=== PATIENT | female | born 1935 | race Two or more races ===

== ENCOUNTER 2019-07-26 16:55 | Inpatient (IN) | payer MEDICARE, MEDICAID ==
[~2019-07-26] VITALS: Ht 121.9 cm; Wt 68.0 kg
[2019-07-26 18:19] LABS: BASOPHILS % 0.6 % (0.0-2.0); EOSINOPHILS % 2.1 % (0.0-5.0); HEMATOCRIT. 37.1 % (36.0-48.0); HEMOGLOBIN. 13.1 g/dL (12.0-16.0); LYMPHOCYTES % 29.3 % (20.0-50.0); MEAN CORPUSCULAR VOLUME 101.9 fL (81.0-99.0); MEAN PLATELET VOLUME 8.3 fl (7.4-10.4); MONOCYTES % 8.5 % (2.0-8.0); NEUTROPHILS % 59.5 % (40.0-76.0); PLATELET 192 x1000/uL (130-400); RED BLOOD CELL COUNT 3.65 mill/uL (4.2-5.4); RED CELL DISTRIBUTION WIDTH 14.3 % (11.6-14.6)
[2019-07-26 18:37] LABS: CHLORIDE 110 mEq/L (98-107)
[2019-07-26 18:41] LABS: ETHANOL BLOOD < 10 mg/dL
[2019-07-26 18:46] LABS: CREATINE KINASE 31 IU/L (26-192)
[2019-07-26 19:47] LABS: CLARITY URINE CLEAR (CLEAR); COLOR URINE YELLOW (YELLOW); KETONES URINE NEGATIVE (NEGATIVE); LEUKOCYTE ESTERASE URINE 3+ (NEGATIVE); NITRITE URINE NEGATIVE (NEGATIVE); OCCULT BLOOD URINE NEGATIVE (NEGATIVE); PH URINE 7.5 (4.5-8.0); PROTEIN URINE NEGATIVE (NEGATIVE); SPECIFIC GRAVITY URINE 1.004 (1.005-1.030); UROBILINOGEN URINE 0.2 E.U./dL (0.2-1.0)
[2019-07-26 20:07] LABS: *AMPHETAMINES SCREEN URINE NEGATIVE (NEGATIVE); *BARBITURATES SCREEN URINE NEGATIVE (NEGATIVE); *COCAINE SCREEN URINE NEGATIVE (NEGATIVE)
[2019-07-26 20:08] LABS: *BENZODIAZEPINES SCREEN URINE NEGATIVE (NEGATIVE); CANNABINOID URINE SCREEN NEGATIVE (NEGATIVE); METHADONE URINE SCREEN NEGATIVE (NEGATIVE); OPIATES URINE SCREEN NEGATIVE (NEGATIVE); PHENCYCLIDINE URINE SCREEN NEGATIVE (NEGATIVE)
[2019-07-26] MEDS ORDERED: CEFTRIAXONE 2 G PREMIX 50 ML IV ONE (21:30)
[2019-07-26] MEDS ORDERED: MIRA50TA MT (23:06)
[2019-07-26] MEDS ORDERED: CLOP75TA33 MT (23:06)
[2019-07-26] MEDS ORDERED: SERT50TA12 MT (23:06)
[2019-07-26] MEDS ORDERED: MUPI15CR11 TP (23:06)
[2019-07-26] MEDS ORDERED: AMLO5TAB88 MT (23:06)
[2019-07-26] MEDS ORDERED: CHOL400C8 MT (23:06)
[2019-07-26] MEDS ORDERED: LISI40TA4 MT (23:06)
[2019-07-26] MEDS ORDERED: MEMA10TA2 MT (23:06)
[2019-07-26] MEDS ORDERED: METO-385 MT (23:06)
[2019-07-26] MEDS ORDERED: CLONIDINE 0.1MG TABLET PO PRN (23:15)
[2019-07-26] MEDS ORDERED: DOCUSATE SODIUM 100MG CAPSULE PO PRN (23:15)
[2019-07-26] MEDS ORDERED: LORAZEPAM 2MG/ML CPJ IV PRN (23:15)
[2019-07-26] MEDS ORDERED: DIPHENHYDRAMINE 50MG/ML VIAL IV PRN (23:15)
[2019-07-26] MEDS ORDERED: NA PHOS,M-B/NA PHOS,DI-BA ENEMA 118ML PR PRN (23:15)
[2019-07-26] MEDS ORDERED: ONDANSETRON HCL 4MG/2ML INJ IV PRN (23:15)
[2019-07-26] MEDS ORDERED: HYDROCODONE/ACETAMINOPHEN 5/325MG TABLET PO PRN (23:15)
[2019-07-26] MEDS ORDERED: LEVOFLOXACIN 500MG PREMIX 100 ML IV SCH (23:15)
[2019-07-26] MEDS ORDERED: IPRATROPIUM/ALBUTEROL 0.5-3(2.5)MG/3ML NEB NEB PRN (23:15)
[2019-07-26] MEDS ORDERED: MAGNESIUM/ALUMINUM HYDROXIDE/SIMETHICONE 30ML UDC PO PRN (23:15)
[2019-07-26] MEDS ORDERED: GUAIFENESIN 200MG/10ML SUGAR FREE UDC PO PRN (23:15)
[2019-07-26] MEDS ORDERED: ACETAMINOPHEN 325MG TABLET PO PRN (23:15)
[2019-07-26] MEDS ORDERED: MORPHINE SULFATE 2 MG/ML CPJ (NOT FOR IM USE) IV PRN (23:15)
[2019-07-26 23:33] VITALS: BP 135/88
[2019-07-27] VITALS (8 sets, daily range): BP systolic 111–144; BP diastolic 58–68
[2019-07-27] MEDS: SODIUM CHLORIDE 0.45% 1,000 ML IV SCH ×2 (00:20→18:34)
[2019-07-27 06:42] LABS: BASOPHILS % 0.4 % (0.0-2.0); EOSINOPHILS % 2.6 % (0.0-5.0); HEMATOCRIT. 36.7 % (36.0-48.0); HEMOGLOBIN. 12.7 g/dL (12.0-16.0); LYMPHOCYTES % 25.1 % (20.0-50.0); MEAN CORPUSCULAR HEMOGLOBIN 35.3 pg (28.0-32.0); MEAN CORPUSCULAR VOLUME 101.8 fL (81.0-99.0); MEAN PLATELET VOLUME 8.8 fl (7.4-10.4); MONOCYTES % 8.3 % (2.0-8.0); NEUTROPHILS % 63.6 % (40.0-76.0); PLATELET 206 x1000/uL (130-400); RED BLOOD CELL COUNT 3.61 mill/uL (4.2-5.4)
[2019-07-27 06:53] LABS: CHLORIDE 112 mEq/L (98-107)
[2019-07-27 07:03] LABS: LDL CHOLESTEROL 134 mg/dL (5-100)
[2019-07-27 07:04] LABS: HDL CHOLESTEROL 36 mg/dL (40-59); T4 FREE 1.04 ng/dL (0.76-1.46)
[2019-07-27] MEDS: ASPIRIN 81MG EC TABLET PO SCH (08:06)
[2019-07-27] MEDS: ENOXAPARIN 40MG/0.4ML SYR SUBCUT SCH (08:07)
[2019-07-27] MEDS: LEVOFLOXACIN 500MG PREMIX 100 ML IV SCH (08:07)
[2019-07-28] VITALS: BP 125/70
[2019-07-28 04:00] VITALS: BP 128/50
[2019-07-28 08:00] VITALS: BP 128/58
[2019-07-28] MEDS: LEVOFLOXACIN 500MG PREMIX 100 ML IV SCH (08:30)
[2019-07-28] MEDS: ASPIRIN 81MG EC TABLET PO SCH (08:34)
[2019-07-28] MEDS: ENOXAPARIN 40MG/0.4ML SYR SUBCUT SCH (08:34)
[2019-07-28 12:00] VITALS: BP 125/58
== END 2019-07-28 15:28 | disposition home health service (06) | DRG 640 ==
LOC: ER 16:55 → EDBD 21:35 → 8WST 21:35 → ENRESERV 22:04
PROVIDERS: ADMIT Internal Medicine; ATTEND Internal Medicine
DX: E86.0 Dehydration (principal); G93.41 Metabolic encephalopathy; N39.0 Urinary tract infection, site not specified; D64.9 Anemia, unspecified; I10 Essential (primary) hypertension; F03.90 Unspecified dementia, unspecified severity, without behavioral disturbance, psychotic disturbance, mood disturbance, and anxiety; Z91.83 Wandering in diseases classified elsewhere
CPT/HCPCS: 36415; 71045; 80061; 80305; 80320; 81003; 82140; 82550; 83605; 84439; 84443; 84484; 93005; 97162; 99285; J0696; J1650; J1956; G0480

== ENCOUNTER 2021-07-15 17:42 | Inpatient (IN) | payer MEDICARE, MEDICAID ==
[~2021-07-15] VITALS: Ht 154.9 cm; Wt 50.8 kg
[~2021-07-15 17:42] MED LIST: AMLO5TAB88 MT; CHOL400C8 MT; CLOP75TA33 MT; LISI40TA13 MT; MEMA10TA2 MT; METO-385 MT; MIRA50TA MT; MUPI15CR11 TP; SERT50TA12 MT
[2021-07-15] MEDS ORDERED: CEFTRIAXONE 1 G PREMIX 50 ML IV ONE (18:30)
[2021-07-15] MEDS ORDERED: SODIUM CHLORIDE 0.9% 1000ML BAG (SEPSIS BOLUS) IV ONE (18:30)
[2021-07-15 18:51] LABS: BASOPHILS % 0.5 % (0.0-2.0); HEMATOCRIT. 41.2 % (36.0-48.0); HEMOGLOBIN. 14.4 g/dL (12.0-16.0); LYMPHOCYTES % 26.9 % (20.0-50.0); MEAN CORPUSCULAR HEMOGLOBIN 34.9 pg (28.0-32.0); MEAN CORPUSCULAR VOLUME 99.9 fL (81.0-99.0); MEAN PLATELET VOLUME 8.1 fl (7.4-10.4); MONOCYTES % 9.3 % (2.0-8.0); NEUTROPHILS % 62.3 % (40.0-76.0); PLATELET 195 x1000/uL (130-400); RED BLOOD CELL COUNT 4.12 mill/uL (4.2-5.4); RED CELL DISTRIBUTION WIDTH 13.2 % (11.6-14.6)
[2021-07-15 18:58] LABS: CHLORIDE 107 mEq/L (98-107)
[2021-07-15 19:03] LABS: PROTHROMBIN TIME 10.8 sec (9.6-11.0)
[2021-07-15 19:23] LABS: CLARITY URINE TURBID (CLEAR); COLOR URINE YELLOW (YELLOW); KETONES URINE NEGATIVE (NEGATIVE); LEUKOCYTE ESTERASE URINE TRACE (NEGATIVE); NITRITE URINE NEGATIVE (NEGATIVE); OCCULT BLOOD URINE NEGATIVE (NEGATIVE); PROTEIN URINE NEGATIVE (NEGATIVE); SPECIFIC GRAVITY URINE 1.019 (1.005-1.030)
[2021-07-15] MEDS ORDERED: ASPIRIN 325MG EC TABLET PO ONE (19:45)
[2021-07-15] MEDS ORDERED: HALOPERIDOL LACTATE 5MG/ML VIAL IM ONE (19:45)
[2021-07-15] MEDS ORDERED: IOHEXOL-350 100 ML BOTTLE ONE (23:27)
[2021-07-16] MEDS ORDERED: CLONIDINE 0.1MG TABLET PO PRN (06:45)
[2021-07-16] MEDS ORDERED: ONDANSETRON HCL 4MG/2ML INJ IV PRN (06:45)
[2021-07-16] MEDS ORDERED: GUAIFENESIN 200MG/10ML SUGAR FREE UDC PO PRN (06:45)
[2021-07-16] MEDS ORDERED: LEVOFLOXACIN 500MG PREMIX 100 ML IV SCH (07:30)
[2021-07-16] MEDS: ENOXAPARIN 40MG/0.4ML SYR SUBCUT SCH (07:56)
[2021-07-16] MEDS: SODIUM CHLORIDE 0.45% 1,000 ML IV SCH ×2 (07:56→20:05)
[2021-07-16] MEDS ORDERED: DOCUSATE SODIUM 100MG CAPSULE PO PRN (09:00)
[2021-07-16] MEDS ORDERED: MAGNESIUM/ALUMINUM HYDROXIDE/SIMETHICONE 30ML UDC PO PRN (09:00)
[2021-07-16] MEDS: METOPROLOL TARTRATE 25MG TABLET PO SCH ×2 (09:41→21:41)
[2021-07-16] MEDS: ASPIRIN 81MG EC TABLET PO SCH (09:41)
[2021-07-16 13:45] VITALS: BP 177/90
[2021-07-16] MEDS: SERTRALINE HCL 50MG TABLET PO SCH (16:41)
[2021-07-16] MEDS: LISINOPRIL 40MG TABLET PO SCH (16:41)
[2021-07-16 17:00] VITALS: BP 159/90
[2021-07-16] MEDS: MEMANTINE HCL 10MG TABLET PO SCH (17:22)
[2021-07-16] MEDS: DILTIAZEM HCL 30MG TABLET PO SCH (18:14)
[2021-07-16 20:00] VITALS: BP 120/91
[2021-07-16] MEDS: ACETAMINOPHEN 325MG TABLET PO PRN (21:39)
[2021-07-17] VITALS (7 sets, daily range): BP systolic 96–174; BP diastolic 45–75
[2021-07-17] MEDS: DILTIAZEM HCL 30MG TABLET PO SCH ×4 (01:43→18:00)
[2021-07-17 07:12] LABS: BASOPHILS % 0.3 % (0.0-2.0); EOSINOPHILS % 0.8 % (0.0-5.0); HEMATOCRIT. 40.3 % (36.0-48.0); HEMOGLOBIN. 13.6 g/dL (12.0-16.0); LYMPHOCYTES % 24.3 % (20.0-50.0); MEAN CORPUSCULAR HEMOGLOBIN 34.9 pg (28.0-32.0); MEAN CORPUSCULAR VOLUME 103.2 fL (81.0-99.0); MEAN PLATELET VOLUME 8.7 fl (7.4-10.4); MONOCYTES % 10.2 % (2.0-8.0); NEUTROPHILS % 64.4 % (40.0-76.0); PLATELET 184 x1000/uL (130-400); RED CELL DISTRIBUTION WIDTH 13.2 % (11.6-14.6)
[2021-07-17 07:29] LABS: CHLORIDE 106 mEq/L (98-107)
[2021-07-17 08:12] LABS: LDL CHOLESTEROL 72 mg/dL (5-100)
[2021-07-17 08:14] LABS: HDL CHOLESTEROL 40 mg/dL (40-59)
[2021-07-17] MEDS: MEMANTINE HCL 10MG TABLET PO SCH ×2 (08:54→18:22)
[2021-07-17] MEDS: SERTRALINE HCL 50MG TABLET PO SCH ×2 (08:54→09:02)
[2021-07-17] MEDS: LISINOPRIL 40MG TABLET PO SCH (08:55)
[2021-07-17] MEDS: ENOXAPARIN 40MG/0.4ML SYR SUBCUT SCH (08:56)
[2021-07-17] MEDS: ASPIRIN 81MG EC TABLET PO SCH (08:56)
[2021-07-17] MEDS: METOPROLOL TARTRATE 25MG TABLET PO SCH ×2 (08:56→20:41)
[2021-07-17] MEDS ORDERED: CLOPIDOGREL 75MG TABLET PO SCH (09:00)
[2021-07-17] MEDS: SODIUM CHLORIDE 0.45% 1,000 ML IV SCH ×2 (09:03→22:38)
[2021-07-17] MEDS: LEVOFLOXACIN 250MG PREMIX 50 ML IV SCH (09:03)
[2021-07-17] MEDS ORDERED: ENOXAPARIN 30MG/0.3ML SYR SUBCUT NR (11:00)
[2021-07-17] MEDS: AMLODIPINE 5MG TABLET PO SCH (12:55)
[2021-07-17] MEDS ORDERED: VANCOMYCIN 1 G PREMIX 200 ML IV NR (13:30)
[2021-07-17] MEDS: ACETAMINOPHEN 325MG TABLET PO PRN (18:22)
[2021-07-17] MEDS: ATORVASTATIN CALCIUM 40MG TABLET PO SCH (20:42)
[2021-07-18] VITALS: BP 151/69
[2021-07-18] MEDS: DILTIAZEM HCL 30MG TABLET PO SCH ×4 (00:40→21:19)
[2021-07-18 04:30] VITALS: BP 119/68
[2021-07-18] MEDS: VANCOMYCIN 500 MG PREMIX 100 ML IV SCH ×2 (06:19→23:15)
[2021-07-18 08:00] VITALS: BP 106/73
[2021-07-18] MEDS ORDERED: ENOXAPARIN 60MG/0.6ML SYR SUBCUT SCH (09:00)
[2021-07-18] MEDS: ASPIRIN 81MG EC TABLET PO SCH (09:10)
[2021-07-18] MEDS: MEMANTINE HCL 10MG TABLET PO SCH ×2 (09:10→17:09)
[2021-07-18] MEDS: SERTRALINE HCL 50MG TABLET PO SCH (09:10)
[2021-07-18] MEDS: METOPROLOL TARTRATE 25MG TABLET PO SCH (09:11)
[2021-07-18] MEDS: LISINOPRIL 40MG TABLET PO SCH (09:11)
[2021-07-18] MEDS: AMLODIPINE 5MG TABLET PO SCH (09:11)
[2021-07-18] MEDS: LEVOFLOXACIN 250MG PREMIX 50 ML IV SCH (09:12)
[2021-07-18 12:00] VITALS: BP 117/59
[2021-07-18] MEDS: SODIUM CHLORIDE 0.45% 1,000 ML IV SCH ×2 (12:26→21:31)
[2021-07-18 16:00] VITALS: BP 115/59
[2021-07-18 20:00] VITALS: BP 117/57
[2021-07-18] MEDS: ATORVASTATIN CALCIUM 40MG TABLET PO SCH (21:09)
[2021-07-19] VITALS (8 sets, daily range): BP systolic 91–153; BP diastolic 43–74
[2021-07-19] MEDS: DILTIAZEM HCL 30MG TABLET PO SCH ×3 (06:24→21:01)
[2021-07-19 06:42] LABS: CHLORIDE 105 mEq/L (98-107)
[2021-07-19] MEDS: AMLODIPINE 5MG TABLET PO SCH (09:05)
[2021-07-19] MEDS: SERTRALINE HCL 50MG TABLET PO SCH (09:05)
[2021-07-19] MEDS: MEMANTINE HCL 10MG TABLET PO SCH ×2 (09:05→17:16)
[2021-07-19] MEDS: LISINOPRIL 40MG TABLET PO SCH (09:05)
[2021-07-19] MEDS: ASPIRIN 81MG EC TABLET PO SCH (09:05)
[2021-07-19] MEDS ORDERED: ENOXAPARIN 60MG/0.6ML SYR SUBCUT SCH (10:00)
[2021-07-19] MEDS ORDERED: LEVOFLOXACIN 250MG TABLET PO SCH (11:00)
[2021-07-19] MEDS: ACETAMINOPHEN 325MG TABLET PO PRN (20:48)
[2021-07-19] MEDS: ATORVASTATIN CALCIUM 40MG TABLET PO SCH (20:48)
[2021-07-20] VITALS: BP_SYST 109; BP_SYST 99; BP_DIAS 46; BP_DIAS 52
[2021-07-20 04:00] VITALS: BP 142/38
[2021-07-20 04:20] VITALS: BP 142/88
[2021-07-20] MEDS: DILTIAZEM HCL 30MG TABLET PO SCH (05:40)
== END 2021-07-20 08:20 | disposition home or self-care (01) | DRG 871 ==
LOC: ER 17:42 → MICUSO 22:10 → EDBEDREQTM 22:14 → EDBEDREQ 22:14 → EDBEDREQSVC 22:14 → 6WST 07-16 14:09
PROVIDERS: ADMIT Hospitalist; ATTEND Hospitalist
DX: A41.1 Sepsis due to other specified staphylococcus (principal); J96.01 Acute respiratory failure with hypoxia; I21.A1 Myocardial infarction type 2; G93.40 Encephalopathy, unspecified; I82.432 Acute embolism and thrombosis of left popliteal vein; E44.1 Mild protein-calorie malnutrition; N39.0 Urinary tract infection, site not specified; E86.0 Dehydration; I10 Essential (primary) hypertension; J44.9 Chronic obstructive pulmonary disease, unspecified; F02.80 Dementia in other diseases classified elsewhere, unspecified severity, without behavioral disturbance, psychotic disturbance, mood disturbance, and anxiety; G30.9 Alzheimer's disease, unspecified; S90.822A Blister (nonthermal), left foot, initial encounter; R74.01 Elevation of levels of liver transaminase levels; X58.XXXA Exposure to other specified factors, initial encounter; Z86.73 Personal history of transient ischemic attack (TIA), and cerebral infarction without residual deficits; Z79.899 Other long term (current) drug therapy; Z79.02 Long term (current) use of antithrombotics/antiplatelets; Z68.21 Body mass index [BMI] 21.0-21.9, adult; Y93.89 Activity, other specified; Y92.89 Other specified places as the place of occurrence of the external cause; Y99.8 Other external cause status
CPT/HCPCS: 36415; 71045; 71275; 80048; 80053; 80061; 80202; 81003; 83605; 83880; 84145; 84484; 85025; 85379; 92610; 93005; 93306; 93970; 97162; 99291; J0696; J1630; J1650; J1956; J3370; J7030; Q9967